=== PATIENT | male | born 1945 | race Caucasian/White ===

== ENCOUNTER 2023-12-14 20:24 | Emergency (ER) | payer OTHER ==
[2023-12-14 20:29] VITALS: BP 158/79; PULSE 69; RESP 20; TEMP 97.6; BMI 33.4
[2023-12-14] MEDS ORDERED: DIPHTH,PERTUSS(ACELL),TET 0.5 ML DISP.SYRIN IM ONE (21:14)
== END 2023-12-14 22:32 | disposition home or self-care (01) ==
LOC: JER 20:24
DX: S00.93XA Contusion of unspecified part of head, initial encounter (principal); W01.198A Fall on same level from slipping, tripping and stumbling with subsequent striking against other object, initial encounter
CPT/HCPCS: 70450-TC; 72125-TC; 99284-25